=== PATIENT | female | born 1975 | race Hispanic/Latino ===

== ENCOUNTER 2022-04-03 05:34 | Observation (INO) | payer OTHER ==
[2022-03-29 11:41] LABS: BASOPHILS % (AUTO) 0.7 % (0.0-5.0); HEMATOCRIT 41.2 % (36-48); LYMPHOCYTES % (AUTO) 26.3 % (21.0-51.0); MEAN CORPUSCULAR HEMOGLOBIN 28.7 pg (27.0-33.0); MEAN CORPUSCULAR VOLUME 89.6 fL (79-99); MONOCYTES % (AUTO) 6.9 % (3.0-13.0); NEUTROPHILS % (AUTO) 63.8 % (40.0-77.0); PLATELET COUNT (AUTO) 329 K/uL (130-400); RED CELL DISTRIBUTION WIDTH 14.3 % (11.0-15.5); WHITE BLOOD COUNT (AUTO) 6.1 K/uL (4.8-10.8)
[2022-03-29 11:53] LABS: APPEARANCE,URINE CLEAR (CLEAR); BILIRUBIN,URINE NEGATIVE (NEGATIVE); COLOR,URINE LIGHT-YELLOW (YELLOW); GLUCOSE, URINE (UA) NEGATIVE (NEGATIVE); KETONES,URINE NEGATIVE (NEGATIVE); LEUKOCYTE ESTERASE ,URINE NEGATIVE Leu/uL (NEGATIVE); NITRATE,URINE NEGATIVE (NEGATIVE); OCCULT BLOOD,URINE NEGATIVE (NEGATIVE); PROTEIN,URINE NEGATIVE (NEGATIVE); UROBILINOGEN,URINE 0.2 mg/dL (0.2-1.0)
[2022-03-29 12:02] LABS: INR 0.93 (0.85-1.15)
[2022-03-29 12:04] LABS: PARTIAL THROMBOPLASTIN TIME 27.5 SEC (26.3-35.5)
[2022-04-02 09:07] VITALS: BP 142/75
[2022-04-03] VITALS (24 sets, daily range): BP systolic 107–150; BP diastolic 63–88
[~2022-04-03] VITALS: Ht 162.6 cm; Wt 99.3 kg
[~2022-04-03 05:34] MED LIST: LOSA1TAB37 PO
[2022-04-03] MEDS ORDERED: VANCOMYCIN 1G/250ML KIT 250 ML IV ONE (06:41)
[2022-04-03] MEDS ORDERED: LACTATED RINGERS 1000ML 1,000 ML IV ONE (06:41)
[2022-04-03] MEDS ORDERED: LEVO150C4 PO (07:35)
[2022-04-03] MEDS ORDERED: CEFAZOLIN SODIUM 2 GM VIAL IVPB PRN (08:00)
[2022-04-03] MEDS ORDERED: PROPOFOL 10 MG/ML 20ML VIAL IV ONE (08:58)
[2022-04-03] MEDS ORDERED: SUCCINYLCHOLINE 200MG/10ML SYR ONE (08:59)
[2022-04-03] MEDS ORDERED: LIDOCAINE PF 100MG/5ML (2%) SYRINGE 5ML ONE (08:59)
[2022-04-03] MEDS ORDERED: ROCURONIUM 10MG/1ML SYR 10 MG/ML ML ONE ×2 (09:00→10:35)
[2022-04-03] MEDS ORDERED: FENTANYL CITRATE PF 50 MCG/1 ML 2ML VIAL ONE ×3 (09:00→11:37)
[2022-04-03] MEDS ORDERED: MIDAZOLAM HCL 1 MG/ML 2ML VIAL ONE (09:00)
[2022-04-03] MEDS ORDERED: GLYCOPYRROLATE 1 MG/5 ML SYRINGE ONE (12:17)
[2022-04-03] MEDS ORDERED: ONDANSETRON 4MG INJ ONE ×2 (12:17→12:51)
[2022-04-03] MEDS ORDERED: NEOSTIGMINE 5MG/5ML SYR IV ONE (12:17)
[2022-04-03] MEDS ORDERED: DEXAMETHASONE SOD PHOSPHATE 4 MG/ML 1ML VIAL ONE (12:17)
[2022-04-03] MEDS ORDERED: MEPERIDINE-PF 25 MG/ML SYG ONE ×2 (12:48→13:26)
[2022-04-03] MEDS ORDERED: BISACODYL 10 MG SUPP.RECT RC PRN (14:30)
[2022-04-03] MEDS ORDERED: ACETAMINOPHEN WITH CODEINE 1 TAB TAB PO PRN (14:30)
[2022-04-03] MEDS ORDERED: SIMETHICONE 80 MG TAB.CHEW PO PRN (14:30)
[2022-04-03] MEDS ORDERED: ONDANSETRON 4MG INJ IVP PRN (14:30)
[2022-04-03] MEDS ORDERED: MEPERIDINE-PF 75 MG/ML SYG IM PRN (14:30)
[2022-04-03] MEDS ORDERED: PROMETHAZINE HCL 25 MG/ML 1ML AMPULE IM PRN ×2 (14:30)
[2022-04-03] MEDS ORDERED: IBUPROFEN 600 MG TABLET PO PRN (14:30)
[2022-04-03] MEDS: DEXTROSE 5 %-0.45 % NACL 1,000 ML IV PRN (16:15)
[2022-04-03] MEDS: DOCUSATE SODIUM 100 MG CAP PO PRN (21:08)
[2022-04-04] MEDS: DEXTROSE 5 %-0.45 % NACL 1,000 ML IV PRN (00:22)
[2022-04-04 04:03] VITALS: BP 141/77
[2022-04-04 06:04] LABS: HEMATOCRIT 30.2 % (36-48); MEAN CORPUSCULAR HEMOGLOBIN 29.1 pg (27.0-33.0); MEAN CORPUSCULAR HGB CONC 32.5 g/dL (32.0-36.0); MEAN CORPUSCULAR VOLUME 89.6 fL (79-99); RED BLOOD CELL COUNT(AUTO) 3.37 MIL/uL (4.00-5.50); RED CELL DISTRIBUTION WIDTH 14.1 % (11.0-15.5); WHITE BLOOD COUNT (AUTO) 10.7 K/uL (4.8-10.8)
[2022-04-04] MEDS ORDERED: IBUPROFEN 800 MG TAB PO PRN (07:00)
[2022-04-04] MEDS ORDERED: HYDROCODONE/ACETAMINOPHEN 5/325 MG TAB PO PRN (07:00)
[2022-04-04] MEDS ORDERED: ACETAMINOPHEN WITH CODEINE 1 TAB TAB PO PRN (07:00)
[2022-04-04 07:17] VITALS: BP 127/76
[2022-04-04] MEDS: DOCUSATE SODIUM 100 MG CAP PO PRN (08:17)
[2022-04-04 11:05] VITALS: BP 125/67
== END 2022-04-04 12:30 | disposition home or self-care (01) ==
LOC: DAH 05:34 → WSH 05:35 → DAH 05:35
PROVIDERS: ADMIT Obstetrics & Gynecology; ATTEND Obstetrics & Gynecology
DX: D25.9 Leiomyoma of uterus, unspecified (principal); Z20.822 Contact with and (suspected) exposure to COVID-19; N92.1 Excessive and frequent menstruation with irregular cycle; N94.10 Unspecified dyspareunia; N83.201 Unspecified ovarian cyst, right side; N73.6 Female pelvic peritoneal adhesions (postinfective); I10 Essential (primary) hypertension; K21.9 Gastro-esophageal reflux disease without esophagitis; E03.9 Hypothyroidism, unspecified; E66.01 Morbid (severe) obesity due to excess calories; Z90.721 Acquired absence of ovaries, unilateral; Z98.891 History of uterine scar from previous surgery; Z79.899 Other long term (current) drug therapy
CPT/HCPCS: 84703; 85025; 85610; 85730; 86850 ×2; 86900 ×2; 86901 ×2; 87426; 81003; 36415 ×3; 58552; 96374; 96372; 81025; 85027; A6260; G0378 ×22; A4510; A4663; J7030; A4351; A4215 ×2; J7120; J3010 ×3; J0330; J3490; J2710; J2550; J2001; J2250; J2704; J2405 ×3; J3370; J1100; J2175 ×3; A4649 ×3; C1769 ×2; A4223; A4222; A4221; A4600